=== PATIENT | female | born 1965 | race Caucasian/White ===

== ENCOUNTER 2017-03-19 08:47 | Day surgery (SDC) | payer OTHER ==
--- NOTE | ~2017-03-19 | EGD ---
EGD REPORT [facility] [address] [address] NAME: MICHELLE CHRISTOPHER : 67 STATUS : REG [facility]#: [id number] AGE: 52 ADM/REG DATE : 03/19/17 MR#: [id number] REPORT SERV DATE: 03/19/17 DICTATED BY: OSWALD ELIAS DATE: 03/19/17 REPORT STATUS : Draft TRANSCRIBED BY: [facility] DATE: 03/19/17 End[facility] Center Patient Name: Michelle Christopher Date of : 1965 Attending MD: OSWALD ELIAS MD Procedure Date No Time: 03/19/2017 Procedure: Colonoscopy Indications: Screening for colorectal malignant neoplasm Referring MD: SARAI MCCLURE MD Medicines: Propofol per Anesthesia Complications: No immediate complications. Procedure: Pre-Anesthesia Assessment: - ASA Grade Assessment: II - A patient with mild systemic disease. After I obtained informed consent, the scope was passed under direct vision. Throughout the procedure, the patient's blood pressure, pulse, and oxygen saturations were monitored continuously. The PCF [id number] was introduced through the anus and advanced to the terminal ileum. The colonoscopy was performed without difficulty. The patient tolerated the procedure well. The quality of the bowel preparation was excellent. Scope withdrawal time was 7 minutes. Findings: A few small-mouthed diverticula were found in the sigmoid colon. The retroflexed view of the distal rectum and anal verge was normal and showed no anal or rectal abnormalities. Impression: - Diverticulosis in the sigmoid colon. Recommendation: - Return to previous diet today. - Repeat colonoscopy in 10 years for screening purposes. - After the procedure, if you experience any pain in abdomen or chest,shortness of breath,fever,chills,blood in stool,rectal bleeding,vomiting of any material,nausea,black stools or weakness or dizziness, GO TO THE EMERGENCY IMMEDIATELY!!!!!!!!! Procedure Code(s): --- Professional --- 51940, Colonoscopy, flexible, proximal to splenic flexure; diagnostic, with or without collection of specimen(s) by brushing or washing, with or without colon decompression (separate procedure) EGD REPORT [facility] [address] [facility] [facility] [place]. [address] NAME: MICHELLE CHRISTOPHER : [birth year] STATUS : REG [facility] [place] PAT#: [id number] AGE: 52 ADM/REG DATE : 03/19/17 MR#: [id number] REPORT SERV DATE: 03/19/17 DICTATED BY: OSWALD ELIAS. DATE: 03/19/17 REPORT STATUS : Draft TRANSCRIBED BY: [employer] DATE: 03/19/17 Diagnosis Code(s): --- Professional --- K57.30, Diverticulosis of large intestine without perforation or abscess without bleeding Z12.11, Encounter for screening for malignant neoplasm of colon CPT copyright 2013 [employer] [place] [employer] [employer]. All rights reserved. The codes documented in this report are preliminary and upon home paraprofessional review may be revised to meet current compliance requirements. Oswald Elias MD OSWALD ELIAS MD 03/19/2017 11:51 AM This report has been signed electronically. Number of Addenda: 0 Note Initiated On: 03/19/2017 11:16 AM Scope Withdrawal Time 0 hours 9 minutes 56 seconds [address] [facility] [place] [address]
[~2017-03-19 08:47] MED LIST: ATV.5 PO; B121000P IM; LIPITOR10 PO; MULTIPLE VIT PO; VESICARE5 PO; ZYRTEC ALLGY10 MG PO; [UNRECOGNIZED DRUG - OTHER] PO
== END 2017-03-19 23:59 | disposition home health service (06) ==
LOC: DMU 08:47
PROVIDERS: Internal Medicine Gastroenterology
PROC: 0DJD8ZZ Inspection of Lower Intestinal Tract, Via Natural or Artificial Opening Endoscopic (ICD-10-PCS; principal; 2017-03-19 10:30)
DX: Z12.11 Encounter for screening for malignant neoplasm of colon (principal); K57.30 Diverticulosis of large intestine without perforation or abscess without bleeding; F41.9 Anxiety disorder, unspecified; E78.00 Pure hypercholesterolemia, unspecified; E78.5 Hyperlipidemia, unspecified; Z98.890 Other specified postprocedural states; Z90.49 Acquired absence of other specified parts of digestive tract